=== PATIENT | female | born 1975 | race African-American/Black ===

== ENCOUNTER 2017-09-20 12:06 | Observation (INO) | payer MEDICAID, SELFPAY ==
[2017-09-20] MEDS ORDERED: diphenhydrAMINE 50 MG/ML VIAL ONE (13:15)
[2017-09-20] MEDS ORDERED: methylPREDNISolone Sod Succ/PF 125 MG/2 ML VIAL ONE (13:15)
[2017-09-20] MEDS ORDERED: Famotidine 20 MG TAB ONE (13:15)
[2017-09-20] MEDS ORDERED: Labetalol HCl 100 MG/20 ML VIAL ONE (14:57)
[2017-09-20 15:23] LABS: #Basophils 0.1 thou/uL (0.0-0.2); #Eosinphils 0.1 thou/uL (0.0-0.7); #Lymphocytes 1.2 thou/uL (1.20-3.40); #Monocytes 0.2 thou/uL (0.11-0.59); %Eosinophils 1.1 % (0.0-10.0); %Lymphocytes 18.4 % (21.0-51.0); %Monocytes 3.2 % (0.0-10.0); %Neutrophils 76.4 % (42.0-75.0); Hemoglobin 13.1 g/dL (12.0-16.0); Mean Corpuscular HGB CONC 34.7 g/dL (32.0-36.0); Mean Corpuscular Hemoglobin 31.8 pg (27.0-31.0); Mean Corpuscular Volume 91.8 fl (81.0-99.0); Mean Platelet Volume 6.4 fL (7.4-10.4); Platelet Count 403 thou/uL (130-400); RBC Distribution Width 12.7 % (11.5-14.5); Red Blood Cell (RBC) Count 4.12 mill/uL (4.20-5.40); White Blood Cell (WBC) Count 6.5 thou/uL (4.8-10.8)
[2017-09-20 15:45] LABS: ALT (SGPT) 16 U/L (8-55); AST (SGOT) 17 U/L (5-34); Albumin 4.4 g/dL (3.5-5.0); Alkaline Phosphatase 61 U/L (40-150); Anion Gap 12 mmol/L (10-20); BUN (Urea Nitrogen) 10 mg/dL (7.0-18.7); Calc. Creatinine Clearance 0 mL/min (70-130); Calcium 9.5 mg/dL (7.8-10.44); Carbon Dioxide 23 mmol/L (22-29); Chloride 101 mmol/L (98-107); Estimated GFR-MDRD Greater than 90; Globulin 3.5 g/dL (2.4-3.5); Glucose 120 mg/dL (70-105); Potassium 3.4 mmol/L (3.5-5.1); Protein, Total 7.9 g/dL (6.0-8.3); Sodium 133 mmol/L (136-145)
--- NOTE | 2017-09-20 16:01 | HP ---
PRIMARY CARE PHYSICIAN: [facility] in [place]. REASON FOR ADMISSION: Angioedema. HISTORY OF PRESENT ILLNESS: A 41-year-old female who came to the emergency room wit h complaint of swelling of upper lip, which she noticed this morning which was gradually getting wors e. The patient is taking lisinopril with hydrochlorothiazide. The patient also reports that about 2 months ago she had lower lip swelling, but the patient continued to take lisinopril with hydrochloro thiazide. Today, the patient's upper lip swelling was gradually getting worse. She did not have any stridor. She did not have any difficulty breathing. She did not have any voice changes. The patie nt came to emergency room for evaluation. The patient was found with upper lip angioedema. She was treated with Solu-Medrol, Benadryl, and Pepcid. We are going to admit this patient for close monitor ing in the hospital. She denies any constipation, diarrhea, melena or hematochezia. She denies any chest pain, palpitatio n, shortness of breath. She denies any headaches. She denies any nausea, vomiting, diarrhea. REVIEW OF SYSTEMS: Please see my HPI for pertinent positive and negative. All other review of syste ms reviewed and negative except as mentioned in the HPI. Constitutional: Weight loss or gain, ability to conduct usual activities. Skin: Rash, itching. Eyes: Double vision, pain. ENT/Mouth: Nose bleeding, neck stiffness, pain, tenderness. Cardiovascular: Palpitations, dyspnea on exertion, orthopnea. Respiratory: Shortness of breath, wheezing, cough, hemoptysis, fever or night sweats. Gastrointestinal: Poor appetite, abdominal pain, heartburn, nausea, vomiting, constipation, or diarrhea. Genitourinary: Urgency, frequency, dysuria, nocturia. Musculoskeletal: Pain, swelling. Neurologic/Psychiatric: Anxiety, depression. Allergy/Immunologic: Skin rash, bleeding tendency. CURRENT HOME MEDICATIONS: Amlodipine 10 mg p.o. daily, lisinopril with hydrochlorothiazide 20/25 one tablet p.o. daily, metoprolol 50 mg p.o. b.i.d. EMERGENCY ROOM COURSE: The patient is given Solu-Medrol 125 mg, labetalol 20 mg, Benadryl 25 mg, and Pepcid 20 mg. PAST MEDICAL HISTORY: Hypertension and obesity. PAST SURGICAL HISTORY: Reviewed and negative. PAST PSYCHIATRIC HISTORY: Reviewed and negative. FAMILY HISTORY: No strong family history of premature coronary artery disease, stroke or cancer. No family history of angioedema, hypertension runs among several family members. SOCIAL HISTORY: Patient drinks alcohol socially. She denies any smoking. She denies any other illi cit drug abuse. She is a teacher in school. ALLERGIES: The patient does not have any previous drug allergy, but now patient is allergic to LISIN OPRIL and ALEE INHIBITORS. PHYSICAL EXAMINATION: VITAL SIGNS: On arrival, blood pressure 181/110, respiratory rate 20, temperature 98.7, pulse 96, sa turation 98% on room air, weight 92.9 kilograms. GENERAL: The patient is currently alert, awake, no obvious acute distress, hypertensive. HEAD: Normocephalic, atraumatic. EYES: Pupils round, reactive to light. Extraocular muscle intact. ENT: The patient does have upper lip swelling and tongue is normal. Lower lip is also within normal limits. No pharyngeal erythema, no exudate. NECK: Supple, no JVD, no thyromegaly, no carotid bruit, no jugular venous distention. LUNGS: Clear to auscultation without any rhonchi or rales. CARDIAC: S1, S2 regular without any murmur. ABDOMEN: Obesity present. Bowel sounds present, nontender, nondistended. No organomegaly, no mass, no suprapubic tenderness. BACK: Unremarkable, no CVA tenderness. EXTREMITIES: Upper extremity: Passive movement of all joints are normal. Lower extremities: No ed nyasia. Good peripheral pulsation. SKIN: No skin rash. HEMATOLOGICAL: No lymphadenopathy. PSYCHIATRIC: Normal affect. SIGNIFICANT LABS: CBC: WBC 6.5, hemoglobin 13.1, platelet 403. CMP result is pending. ASSESSMENT AND PLAN: 1. Lisinopril induced angioedema, recurrent. The patient is strongly advised to discontinue lisinop ril with hydrochlorothiazide. The patient is instructed that she is now allergic to ALEE INHIBITOR an d she should avoid that group of medication. We will isolated give her hydrochlorothiazide for hyper tension. The patient is already taking amlodipine 10 mg p.o. daily, which we will continue while in hospital for hypertension, but for angioedema. We will treat her with Solu-Medrol 40 mg IV q.6 hourl y for today and upon discharge we will give her a short course of oral prednisone. We will also cont inue Pepcid 20 mg IV b.i.d. and Benadryl 25 mg IV q.6 hourly. We will monitor closely for any airway involvement while in hospital. At this point, the patient does not have any stridor, does not have any difficulty breathing. We will monitor in hospital, and subsequently upon discharge, we will pres cribe Benadryl, Pepcid and steroid for a short course. 2. Hypertension. We are expecting with steroid patient's blood pressure will get worse and that is why we will use clonidine p.r.n. basis, labetalol p.r.n. basis, hydralazine on p.r.n. basis. At this point, we will continue amlodipine 10 mg p.o. daily. The patient's home medication metoprolol as we ll and while in hospital, we will titrate blood pressure medication. The patient strongly instructed to avoid any kind of ALEE inhibitors in the future. 3. Obesity. Dietary education given, weight loss education given. Healthy lifestyle measures discu ssed with the patient. 4. Deep venous thrombosis prophylaxis not needed because we are expecting discharge in 24 hours. 5. Gastrointestinal prophylaxis. Patient is already on Pepcid therapy. 6. Code status: The patient is FULL CODE. Disposition plan within 24 hours. Plan of care discussed with the patient and other family member at bedside in the emergency room.
[2017-09-20] MEDS ORDERED: Ondansetron ODT 4 MG TAB PO PRN (16:47)
[2017-09-20] MEDS ORDERED: Diabetic Tussin 200 MG/10 ML UDCUP PO PRN (16:47)
[2017-09-20] MEDS ORDERED: hydrALAZINE 20 MG/ML VIAL SLOW IVP PRN (16:47)
[2017-09-20] MEDS ORDERED: HYDROcodone/Acetaminophen 5/325 mg Tablet PO PRN (16:47)
[2017-09-20] MEDS ORDERED: Loperamide HCl 2 MG CAP PO PRN (16:47)
[2017-09-20] MEDS ORDERED: Potassium Chloride 20 MEQ TAB PO SCH (16:47)
[2017-09-20] MEDS ORDERED: Acetaminophen 325 MG TAB PO PRN (16:47)
[2017-09-20] MEDS ORDERED: Mag-Al 1200 mg/1200 mg/30 ML UDCUP PO PRN (16:47)
[2017-09-20] MEDS ORDERED: cloNIDine 0.1 MG TAB PO PRN (16:47)
[2017-09-20] MEDS ORDERED: Artificial Tears 18 DROP/0.9 ML EA EYE PRN (16:47)
[2017-09-20] MEDS ORDERED: Milk Of Magnesia 30 ML UDCUP PO PRN (16:47)
[2017-09-20] MEDS ORDERED: Ondansetron HCl/PF 4 MG/2 ML Vial IVP PRN (16:47)
[2017-09-20] MEDS ORDERED: Senokot 8.6 MG TAB PO PRN (16:47)
[2017-09-20] MEDS ORDERED: Sodium Chloride 0.65% Nasal 44 ML BOT EA NARE PRN (16:47)
[2017-09-20] MEDS ORDERED: Chloraseptic Spray 180 ml Bottle PO PRN (16:47)
[2017-09-20] MEDS ORDERED: Eucerin (Mineral Oil/Petrolatum,White) 30 gm Jar TOP PRN (16:47)
[2017-09-20] MEDS ORDERED: Labetalol HCl 100 MG/20 ML VIAL SLOW IVP PRN (16:47)
[2017-09-20] MEDS ORDERED: Zolpidem Tartrate 5 MG TAB PO PRN (16:47)
[2017-09-20 17:10] VITALS: BMI 33.4
[2017-09-20] MEDS: diphenhydrAMINE 50 MG/ML VIAL IVP SCH ×2 (17:28→23:12)
[2017-09-20] MEDS: Famotidine 40 MG/4 ML VIAL SLOW IVP SCH (20:28)
[2017-09-20] MEDS: Metoprolol Tartrate 50 MG TAB PO SCH (20:28)
[2017-09-21] MEDS: diphenhydrAMINE 50 MG/ML VIAL IVP SCH (05:31)
[2017-09-21 08:05] VITALS: BP 141/73; TEMP 98.3
[2017-09-21] MEDS: Metoprolol Tartrate 50 MG TAB PO SCH (08:49)
[2017-09-21] MEDS: Famotidine 40 MG/4 ML VIAL SLOW IVP SCH (08:49)
[2017-09-21] MEDS ORDERED: Amlodipine 10 MG TAB PO SCH (09:00)
[2017-09-21] MEDS ORDERED: Hydrochlorothiazide 25 MG TAB PO SCH (09:00)
--- NOTE | 2017-09-21 10:45 | DIS ---
DATE OF ADMISSION: 09/20/2017 DATE OF DISCHARGE: 09/21/2017 PRIMARY CARE PHYSICIAN: [facility] DISCHARGE DISPOSITION: Home. PRIMARY DISCHARGE DIAGNOSES: Angioedema of the upper lip due to lisinopril; and hypokalemia, correct ed SECONDARY DISCHARGE DIAGNOSES: Hypertension and obesity with BMI 33. PRIMARY PROCEDURE/OPERATION: None. RADIOLOGICAL INVESTIGATION: None. SIGNIFICANT LABORATORY DATA: WBC 6.5, hemoglobin 13.1, platelets 403. Sodium 133, potassium 3.4, BU N 10, creatinine 0.62. LFT normal. DISCHARGE MEDICATIONS: Amlodipine 10 mg p.o. daily, Benadryl 25 mg t.i.d. for 5 days, Pepcid 20 mg p .o. b.i.d. for 5 days, prednisone 20 mg p.o. daily for 5 days, hydrochlorothiazide 25 mg p.o. daily, metoprolol tartrate 25 mg p.o. b.i.d. CONTRAINDICATIONS: None. CODE STATUS: FULL CODE. INPATIENT CONSULTANTS: None. ALLERGIES: LISINOPRIL. DISCHARGE PLAN: Post hospital, the patient will follow up with primary care physician. HOSPITAL COURSE: A 41-year-old female, who was taking lisinopril with hydrochlorothiazide and she pr esented with swelling of her upper lip. The patient's clinical presentation was consistent with jenna oedema secondary to lisinopril. She had a lower lip swelling a couple of months ago. At this point, we treated her with steroids, Benadryl, and Pepcid while in hospital, and next day, her upper lip sw elling was significantly improved. She did not have any airway compromise. We specifically advised this patient to discontinue lisinopril medication and we increased metoprolol to 25 mg b.i.d. and hydrochlorothiazide and amlodipine was continued. The patient is given Benadryl , Pepcid, and prednisone for 5 days. PHYSICAL EXAMINATION: The patient is seen and examined at bedside today. VITAL SIGNS: Currently, temperature 98.3, pulse 99, respiratory rate 16, saturation 96% on room air, blood pressure 141/73, weight 207 pounds. GENERAL: The patient is currently alert, awake, in no acute distress. HEAD: Normocephalic, atraumatic. EYES: Pupils round and reactive to light. Extraocular muscle intact. ENT: Oropharynx within normal limits. Moist mucous membranes. No oral lesion, no pharyngeal erythe ma, no exudate. NECK: Supple, no JVD, no thyromegaly. LUNGS: Clear without any rhonchi. CARDIAC: S1 and S2 regular without any murmur. ABDOMEN: Soft and benign. EXTREMITIES: No edema. NEUROLOGIC: Nonfocal examination. The patient is medically stable for discharge today.
== END 2017-09-21 09:52 | disposition home or self-care (01) ==
LOC: ERS 12:06 → 2SW 16:37
PROVIDERS: ADMIT Internal Medicine; ATTEND Internal Medicine
DX: T78.3XXA Angioneurotic edema, initial encounter (principal); T46.4X5A Adverse effect of angiotensin-converting-enzyme inhibitors, initial encounter; E87.6 Hypokalemia; I10 Essential (primary) hypertension; E66.9 Obesity, unspecified; Z68.33 Body mass index [BMI] 33.0-33.9, adult; Z79.899 Other long term (current) drug therapy
CPT/HCPCS: 36415; 80053; 85025; 96374; 96375; 96376; G0378; J1200; J2930

== ENCOUNTER 2018-05-25 13:26 | Emergency (ER) | payer SELFPAY | END 2018-05-25 14:51 | disposition home or self-care (01) | LOC: ERS 13:26 | DX: L03.114 Cellulitis of left upper limb (principal); I10 Essential (primary) hypertension; Z79.899 Other long term (current) drug therapy ==

== ENCOUNTER 2019-10-30 10:32 | Emergency (ER) | payer OTHER, SELFPAY ==
[2019-10-31 14:53] LABS: SARS-CoV-2 MS2 Positive; SARS-CoV-2 N Gene Negative; SARS-CoV-2 S Gene Negative; SARS-CoV-2 orf1ab Negative
== END 2019-10-30 11:05 | disposition home or self-care (01) ==
LOC: ERS 10:32
DX: Z20.828 Contact with and (suspected) exposure to other viral communicable diseases (principal); I10 Essential (primary) hypertension; Z79.899 Other long term (current) drug therapy
CPT/HCPCS: 87635; 99283; U0003

== ENCOUNTER 2020-10-19 12:59 | Outpatient (CLI) | payer MEDICAID | END 2020-10-19 13:00 | disposition home or self-care (01) | LOC: BICMAMMO 12:59 | PROVIDERS: ATTEND Nurse Practitioner Family | DX: Z12.31 Encounter for screening mammogram for malignant neoplasm of breast (principal) | CPT/HCPCS: 77063; 77067 ==

== ENCOUNTER 2023-05-20 19:06 | Emergency (ER) | payer MEDICAID, SELFPAY ==
[2023-05-20] MEDS ORDERED: hydrALAZINE 10 MG TAB ONE (21:21)
== END 2023-05-20 22:16 | disposition home or self-care (01) ==
LOC: ERS 19:06
DX: I10 Essential (primary) hypertension (principal); R51.9 Headache, unspecified; Z79.899 Other long term (current) drug therapy
CPT/HCPCS: 70450; 93005

== ENCOUNTER 2024-05-25 10:57 | Outpatient (CLI) | payer OTHER | END 2024-05-25 10:58 | disposition home or self-care (01) | LOC: BICMAMMO 10:57 | PROVIDERS: ATTEND Nurse Practitioner Family | DX: Z12.31 Encounter for screening mammogram for malignant neoplasm of breast (principal) | CPT/HCPCS: 77063; 77067 ==

== ENCOUNTER 2025-01-31 13:28 | Emergency (ER) | payer OTHER ==
[2025-01-31 13:56] LABS: #Basophils 0.09 10x3/uL (0.0-0.2); #Eosinophils 0.31 10x3/uL (0.0-0.7); #Monocytes 0.54 10x3/uL (0.11-0.59); #Neutrophils 3.68 10x3/uL (1.40-6.50); %Basophils 1.4 % (0.0-1.0); %Eosinophils 4.7 % (0.0-10.0); %Lymphocytes 28.9 % (21.0-51.0); %Monocytes 8.3 % (0.0-10.0); %Neutrophils 56.4 % (42.0-75.0); Hematocrit 33.2 % (36.0-47.0); Hemoglobin 10.3 g/dL (12.0-16.0); Mean Corpuscular Hemoglobin 24.2 pg (27.0-31.0); Mean Corpuscular Volume 77.9 fL (78.0-98.0); Platelet Count 403 10x3/uL (130-400); Red Blood Cell (RBC) Count 4.26 mill/uL (4.20-5.40); White Blood Cell (WBC) Count 6.53 10x3/uL (4.8-10.8)
[2025-01-31 14:20] LABS: ALT (SGPT) 8 U/L (Less than 34); AST (SGOT) 25 U/L (11-34); Albumin 3.8 g/dL (3.1-4.5); Alkaline Phosphatase 64 U/L (40-110); Anion Gap 16 mmol/L (10-20); BUN (Urea Nitrogen) 9 mg/dL (7.0-18.7); Bilirubin, Total 0.2 mg/dL (0.3-1.2); Calc. Creatinine Clearance 0 mL/min (70-130); Calcium 8.9 mg/dL (7.8-10.44); Carbon Dioxide 23 mmol/L (22-29); Chloride 100 mmol/L (98-107); Globulin 3.1 g/dL (2.4-3.5); Glucose 110 mg/dL (70-105); Potassium 3.0 mmol/L (3.5-5.1); Sodium 136 mmol/L (136-145)
[2025-01-31] MEDS ORDERED: diphenhydrAMINE 50 MG/ML VIAL ONE (15:41)
[2025-01-31] MEDS ORDERED: Metoclopramide HCl 10 MG (2 mL) VIAL ONE (15:42)
[2025-01-31] MEDS ORDERED: cloNIDine 0.1 MG TAB ONE (15:49)
== END 2025-01-31 17:23 | disposition home or self-care (01) ==
LOC: ERS 13:28
DX: U07.1 COVID-19 (principal); I10 Essential (primary) hypertension; E87.6 Hypokalemia; E11.9 Type 2 diabetes mellitus without complications; Z79.82 Long term (current) use of aspirin; Z79.899 Other long term (current) drug therapy; Z79.84 Long term (current) use of oral hypoglycemic drugs
CPT/HCPCS: 36415; 70450; 71045; 80053; 84484; 85025; 87426; 93005; J1200; J2765